=== PATIENT | female | born 1990 | race Caucasian/White ===

== ENCOUNTER 2021-12-24 09:46 | Outpatient (CLI) | payer OTHER, SELFPAY ==
[2021-12-24 10:32] LABS: Basophils Percent Auto 0.6 % (0.2-1.2); Eosinophils Absolute Auto 0.1 K/mm3 (0-0.3); Hematocrit 40.2 % (37.0-47.0); Hemoglobin 12.9 g/dL (12.0-15.0); Immature Granulocyte Absolute 0.03 K/mm3 (0.00-0.031); Immature Granulocyte Percent A 0.4 % (0-0.5); Lymphocytes Absolute Auto 1.95 K/mm3 (0.9-3.2); Mean Corpuscular HGB Conc 32.1 g/dl (32-36); Mean Corpuscular Hemoglobin 27.3 pg (26-34); Mean Platelet Volume 10.3 fl (7.4-10.4); Monocytes Absolute Auto 0.6 K/mm3 (0.1-0.6); Monocytes Percent Auto 7.9 % (2.6-8.5); Neutrophils Absolute Auto 4.3 K/mm3 (1.3-6.7); Neutrophils Percent Auto 62.1 % (45.5-73.1); Platelet Count Result 299 k/mm3 (150-375); Red Blood Count 4.73 M/mm3 (4.2-5.4); Red Cell Distribution Width 13.2 % (11.5-14.5)
[2021-12-24 10:43] LABS: Alanine Aminotransferase 30 U/L (6-35); Albumin Level 4.6 g/dL (3.5-5.1); Alkaline Phosphatase 45 U/L (38-126); Anion Gap 11 mmol/L (8-16); Aspartate Amino Transferase 32 U/L (14-36); Bilirubin,Total 0.3 mg/dL (0.2-1.3); Blood Urea Nitrogen 14 mg/dL (7-17); Calcium 9.2 mg/dL (8.4-10.2); Carbon Dioxide 21 mmol/L (22-30); Chloride 107 mmol/L (98-107); Cholesterol 161 mg/dL (0-200); Estimated Glomerular Filt Rate > 60; Glucose 99 mg/dL (65-110); HDL Direct 33 mg/dL; Hemoglobin A1C 5.1 % (<5.7); Potassium 4.2 mmol/L (3.4-5.0); Sodium 139 mmol/L (137-145); Triglycerides 203 mg/dL (<150)
[2021-12-24 10:55] LABS: LDL Cholesterol Direct 94 mg/dL
[2021-12-24 11:47] LABS: Folic Acid 12.9 ng/mL (2.76->20)
[2021-12-24 13:18] LABS: Vitamin D 25 Hydroxy 40.9 ng/mL
[2021-12-27 06:01] LABS: Progesterone 0.4 ng/mL (***); Prolactin 18.3 ng/mL (***)
[2021-12-27 12:05] LABS: DHEA-Sulfate 209 mcg/dL (18-391)
[2021-12-28 18:00] LABS: Testosterone Free 2.3 pg/mL (0.1-6.4); Testosterone Total 20 ng/dL (2-45)
[2021-12-30 18:25] LABS: Estradiol, Ultrasensitive 26 pg/mL
== END 2021-12-24 09:47 | disposition home or self-care (01) ==
PROVIDERS: PCP Family Medicine; Visit Provider Obstetrics & Gynecology
DX: R53.83 Other fatigue (principal); N92.6 Irregular menstruation, unspecified; E66.9 Obesity, unspecified; Z51.81 Encounter for therapeutic drug level monitoring; Z79.899 Other long term (current) drug therapy
CPT/HCPCS: 36415; 80053; 80061; 82306; 82607; 82627; 82670; 82746; 83001; 83036; 84144; 84146; 84402; 84403; 85025

== ENCOUNTER 2022-06-02 10:44 | Emergency (ER) | payer OTHER, SELFPAY ==
--- NOTE | 2022-06-02 10:54 | ED.URI ---
HPI - URI/Sore Throat General Chief Complaint: Upper Respiratory Infection Stated Complaint: cough, congestion,sinus pressure Source: patient and RN notes reviewed History of Present Illness HPI Narrative: 32-year-old female presents to urgent care with complaints of a cough times 10 days. Patient reports congestion x3 days. Patient states she has a sore throat when she coughs. Denies any fevers, chills, vomiting chest pain. Pt states she can't stop coughing. PT has used her Flonase one time yesterday. Related Data Allergies Allergy/AdvReac Type Severity Reaction Status Date / Time Penicillins Allergy Intermediate Hives Verified 10/06/21 13:43 Review of Systems Review of Systems: CONSTITUTIONAL: Denies fever, chills, or sweats. EYES: Denies visual changes, redness, or discharge. ENT: congestion, sore throat with coughing. CARDIOVASCULAR: Denies chest pain, palpitations, or edema. RESPIRATORY: cough GASTROINTESTINAL: Denies abdominal pain, nausea, vomiting, or diarrhea. GENITOURINARY: Denies dysuria or hematuria. SKIN: Denies rash or itching. MUSCULOSKELETAL: Denies back pain, joint pain, or myalgia. NEUROLOGIC: Denies headache, numbness, or weakness. FOR[facility]LY [facility], LATER [facility] Past Medical History Medical History (Updated 06/02/22 @ 11:18 by Torie Carranza APRN) History of hypertension Surgical History Surgical History (Updated 10/06/21 @ 13:47 by Belem Ray CMA) H/O right knee surgery Family History Family History (Updated 10/06/21 @ 13:46 by Belem Ray CMA) Other Acute pancreatitis Cerebrovascular accident Diabetes mellitus Heart disease Hypertension Social History Social History (Updated 10/06/21 @ 13:47 by Belem Ray CMA) Smoking status: Never smoker Alcohol intake: current Substance use: never Living arrangements: alone Occupation/Education: occupation 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 There is no relevant family history pertinent to the patient complaint. Exam Narrative: GENERAL: This is a well-nourished, well-developed patient, in no apparent distress. HEAD: normocephalic, atraumatic. EYES: PERRL. Sclera clear/white. Vision is grossly intact. EARS: External ears normal, auditory canals clear and without drainage, TMs normal without perforation. Hearing grossly intact. NOSE: External nose normal with no obvious nasal discharge, nares without redness, no rhinorrhea. THROAT: Mucous membranes moist, posterior pharynx clear. NECK: Neck supple, non-tender without lymphadenopathy, masses or thyromegaly. CARDIOVASCULAR: Regular rate and rhythm without murmurs, gallops, or rubs. RESPIRATORY: Clear to auscultation. Breath sounds equal bilaterally. No wheezes, rales, or rhonchi. Coughing frequently; dry cough. GASTROINTESTINAL: Abdomen soft, non-tender, nondistended. Bowel sounds are active. No hepato-splenomegaly, or palpable masses. No guarding. SKIN: warm, intact with no suspicious lesions or rash, good texture and turgor. NEURO: awake, alert, and oriented to person, place and time. There were no obvious focal neurologic abnormalities. Course Course Level of Care: Express Care Visit Vital Signs Vital signs: Vital Signs Temperature 98.5 F 06/02/22 11:02 Pulse Rate 96 06/02/22 11:02 Respiratory Rate 16 06/02/22 11:02 Blood Pressure 121/84 06/02/22 11:02 Pulse Oximetry 98 06/02/22 11:02 Temperature 98.5 F 06/02/22 11:02 Pulse Rate 96 06/02/22 11:02 Respiratory Rate 16 06/02/22 11:02 Blood Pressure 121/84 06/02/22 11:02 Pulse Oximetry 98 06/02/22 11:02 Reviewed MDM - URI/Sore Throat MDM Narrative Medical decision making na
[2022-06-02 11:02] VITALS: BP 121/84; PULSE 96; RESP 16; TEMP 36.9; O2SAT 98
== END 2022-06-02 11:25 | disposition home or self-care (01) ==
PROVIDERS: Emergency Provider Nurse Practitioner Family
DX: J40 Bronchitis, not specified as acute or chronic (principal); J06.9 Acute upper respiratory infection, unspecified; I10 Essential (primary) hypertension
CPT/HCPCS: 99213; G0463

== ENCOUNTER 2022-12-17 17:01 | Emergency (ER) | payer OTHER, SELFPAY ==
[2022-12-17 17:16] VITALS: BP 116/74; PULSE 83; RESP 16; TEMP 36.1; O2SAT 97
--- NOTE | 2022-12-17 17:27 | ED.EXTPRO ---
HPI - Extremity Problem General Chief complaint: Extremity Problem,Nontraumatic Stated complaint: INFECTED FINGERNAIL Source: patient Mode of arrival: ambulatory Limitations: no limitations History of Present Illness HPI Narrative: 32-year-old female presented for complaint right little finger pain for about 6 weeks. States pain can be intense and is located under the nail. No injury. No swelling, drainage, or discoloration. Pain only occurs when the fingernail is long, states pain is resolved when she cuts the fingernail. Has taken Tylenol which helps. Does not get professional manicures. Related Data Home Medications Medication Instructions Recorded Confirmed drospirenone (contraceptive) 4 mg 1 tablet PO DAILY 12/17/22 12/17/22 (28) tablet (Slynd) Allergies Allergy/AdvReac Type Severity Reaction Status Date / Time Penicillins Allergy Intermediate Hives Verified 12/17/22 17:15 Review of Systems Review of Systems: CONSTITUTIONAL: Denies body aches, fever, chills, or sweats. EYES: Denies visual changes, redness, or discharge. ENT: Denies rhinorrhea, congestion, sore throat, or otalgia. CARDIOVASCULAR: Denies chest pain, palpitations, or edema. RESPIRATORY: Denies cough or dyspnea. GASTROINTESTINAL: Denies abdominal pain, nausea, vomiting, or diarrhea. GENITOURINARY: Denies dysuria or hematuria. SKIN: Denies rash, itching, or wounds. MUSCULOSKELETAL: per HPI Denies back pain, joint pain, or myalgia. NEUROLOGIC: Denies headache, numbness, tingling, or weakness. All systems reviewed & are unremarkable except as noted in HPI and below PMFSH Past Medical History Medical History History of hypertension Surgical History Surgical History H/O right knee surgery Family History Family History Other Acute pancreatitis Cerebrovascular accident Diabetes mellitus Heart disease Hypertension Social History Social History Smoking status: Never smoker Alcohol intake: current Substance use: never Substance use type: marijuana Lack of Transportation: No Lack of Food: Never True Current Housing: I Have Housing Concerned About Future Housing: No Difficulty Paying Gas/Electric Bills: No Difficulty Paying for Meds: No Currently Unemployed: No Education: Bachelor's Degree Difficulty w/ Childcare or Family Care: No Living arrangements: alone Occupation/Education: occupation 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 Please see nursing chart for further information. There is no relevant family history pertinent to the presenting complaint Exam Narrative: GENERAL: Well-appearing, well-nourished, and in no acute distress. EYES: EOMI. No redness or drainage. Conjunctivae normal. ENT: Mucous membranes pink and moist. No rhinorrhea. TMs normal bilaterally. Throat normal. Uvula midline. NECK: Normal AROM. Supple. No lymphadenopathy. CHEST: No respiratory distress. Clear to auscultation. HEART: Regular rate and rhythm. No murmur appreciated. Normal peripheral pulses. ABDOMEN: Soft, nontender, nondistended, normal active bowel sounds. MUSCULOSKELETAL: No bony tenderness. EXTREMITIES: Right 5th digit reported pain to fingernail. Mild linear discoloration just proximal to edge of nail. No swelling or paronychia noted. Nontender. Normal range of motion. No edema. SKIN: Warm, dry, no rash. Capillary refill normal. Normal skin turgor. NEURO: No focal deficits. Alert and orien
== END 2022-12-17 17:30 | disposition home or self-care (01) ==
PROVIDERS: Emergency Provider Nurse Practitioner Family; PCP Family Medicine
DX: M79.644 Pain in right finger(s) (principal); I10 Essential (primary) hypertension
CPT/HCPCS: 99213; G0463